=== PATIENT | male | born 1940 | race Caucasian/White ===

== ENCOUNTER → 2016-07-25 | Outpatient (CLI) | payer MEDICARE, OTHER ==
[2016-07-25 13:07] LABS: Urine Bilirubin Negative (Negative); Urine Blood Negative /uL (Negative); Urine Color Yellow (Yellow); Urine Glucose Normal (Normal); Urine Ketone Negative (Negative); Urine Nitrite Negative (Negative); Urine Urobilinogen Normal (Negative); Urine pH 7.5 (5.0-8.0)
[2016-07-25 13:08] LABS: Basophils # (auto) 0 uL; Basophils % (auto) 0.5 % (0.0-2.0); Eosinophils # (auto) 0.6 uL; Eosinophils % (auto) 8.2 % (0.0-7.0); Hemoglobin 12.1 g/dL (13.5-17.5); Lymphocytes # (auto) 1.8 uL; Lymphocytes % (auto) 24.3 % (10.0-50.0); Mean Corpuscular Hemoglobin 28.4 pg (28.0-32.0); Mean Corpuscular Hgb Conc. 32.7 g/dL (32.0-36.0); Mean Corpuscular Volume 86.9 fL (80.0-100.0); Mean Platelet Volume 7.7 fL (7.4-10.4); Monocytes # (auto) 0.7 uL; Monocytes % (auto) 9.1 % (0.0-12.0); Neutrophils # (auto) 4.3 uL; Neutrophils % (auto) 57.9 % (37.0-80.0); Platelet Count (auto) 377 10^3/uL (140-450); Red Cell Distribution Width 16.7 % (11.6-16.0); White Blood Cell 7.5 10^3/uL (4.4-10.8)
[2016-07-25 13:21] LABS: Albumin 3.5 g/dL (3.4-5.0); BUN/Creatinine Ratio 12.9; Calcium 8.8 mg/dL (8.5-10.1); Potassium 4.3 mmol/L (3.5-5.1)
[2016-07-25 13:27] LABS: Bilirubin, Total 0.4 mg/dL (0.2-1.0); Total Protein 7.5 g/dL (6.4-8.2)
[2016-07-25 13:53] LABS: Bilirubin, Direct 0.1 mg/dL (0-0.2)
== END | disposition home or self-care (01) ==
LOC: LAB 09:06
PROVIDERS: ATTEND Internal Medicine Cardiovascular Disease
DX: I10 Essential (primary) hypertension (principal); E78.00 Pure hypercholesterolemia, unspecified; K74.1 Hepatic sclerosis; E11.9 Type 2 diabetes mellitus without complications; R97.20 Elevated prostate specific antigen [PSA]; R53.81 Other malaise; E03.9 Hypothyroidism, unspecified; D64.9 Anemia, unspecified; E55.9 Vitamin D deficiency, unspecified; N39.0 Urinary tract infection, site not specified
CPT/HCPCS: 36415; 80048; 80061; 80076; 81003; 82306; 83036; 84153; 84403; 84443; 85025

== ENCOUNTER → 2016-11-02 | Outpatient (CLI) | payer MEDICARE, OTHER ==
[~2016-11-02] VITALS: Ht 172.7 cm; Wt 73.0 kg
[~2016-11-02] MED LIST: ADENOSINE 61 MG in GIVE UN-DILUTED 0 ML IV ONE; ADENOSINE 90 MG/30 ML INJ IV ONE
== END | disposition home or self-care (01) ==
LOC: Rad HDHVI 13:33
PROVIDERS: ATTEND Internal Medicine Cardiovascular Disease
DX: I20.9 Angina pectoris, unspecified (principal); I70.0 Atherosclerosis of aorta; R00.2 Palpitations; Z72.0 Tobacco use; Z82.49 Family history of ischemic heart disease and other diseases of the circulatory system
CPT/HCPCS: 78452; 93005; 93306; 96374; 96375; A9500; J0153